=== PATIENT | female | born 1935 | race Caucasian/White ===

== ENCOUNTER 2017-02-02 18:42 | Inpatient (IN) | payer MEDICARE ==
[~2017-02-02] VITALS: Ht 147.3 cm; Wt 48.1 kg
[2017-02-02] MEDS ORDERED: ACET-2154 PO (19:06)
[2017-02-02] MEDS ORDERED: ASPI81TA31 PO (19:06)
[2017-02-02] MEDS ORDERED: HYDR-552 PO (19:06)
[2017-02-02] MEDS ORDERED: DOCU-141 PO (19:09)
[2017-02-02] MEDS ORDERED: CYCL10TA9 PO (19:09)
[2017-02-02] MEDS ORDERED: CLON0.1T PO (19:09)
[2017-02-02] MEDS ORDERED: LORA0.5T PO (19:10)
[2017-02-02] MEDS ORDERED: LISI-603 PO (19:10)
[2017-02-02] MEDS ORDERED: SENN-167 PO (19:10)
[2017-02-02] MEDS ORDERED: TEMA15CA5 PO (19:11)
[2017-02-02] MEDS ORDERED: MAG HYDROX/AL HYDROX/SIMETH 30 ML LIQUID UDC PO PRN (20:15)
[2017-02-02] MEDS ORDERED: MAGNESIUM HYDROXIDE 30 ML LIQUID UDC PO PRN (20:15)
[2017-02-02] MEDS ORDERED: LORAZEPAM 0.5 MG TABLET PO PRN (20:15)
[2017-02-02] MEDS: TEMAZEPAM 7.5 MG CAPSULE PO PRN (22:44)
[2017-02-02] MEDS ORDERED: DOCUSATE SODIUM 100 MG CAPSULE PO SCH (22:45)
[2017-02-03 01:22] VITALS: BP 132/97
[2017-02-03 07:30] VITALS: BP 135/68
[2017-02-03 07:31] LABS: BASOPHILS # (AUTO) 0.1 K/uL (0.0-8.0); BASOPHILS % (AUTO) 0.8 % (0.0-2.0); EOSINOPHILS # (AUTO) 0.4 K/uL (0.0-0.7); EOSINOPHILS % (AUTO) 4.8 % (0.0-7.0); HEMOGLOBIN 13.2 G/DL (12.0-16.0); LYMPHOCYTES # (AUTO) 2.4 K/UL (0.8-4.8); MEAN CORPUSCULAR HEMOGLOBIN 32.2 UUG (27.0-31.0); MEAN CORPUSCULAR HGB CONC 33 g/dL (32.0-37.0); MEAN CORPUSCULAR VOLUME 97.5 FL (81.0-99.0); MONOCYTES # (AUTO) 0.6 K/UL (0.1-1.30); MONOCYTES % (AUTO) 6.1 % (0.0-11.0); NEUTROPHILS # (AUTO) 5.8 K/UL (1.8-8.9); NEUTROPHILS % (AUTO) 62.3 % (38.5-71.5); PLATELET COUNT (AUTO) 410 K/UL (150-450); WHITE BLOOD COUNT (AUTO) 9.3 K/UL (4.0-11.2)
[2017-02-03 08:04] LABS: THYROID STIMULATING HORMONE 1.337 mIU/mL (0.358-3.740)
[2017-02-03 08:11] LABS: ALKALINE PHOSPHATASE 72 U/L (50-136); ASPARTATE AMINOTRANSFERASE 15 U/L (15-37); BILIRUBIN,TOTAL 0.6 mg/dL (0.2-1.0); CARBON DIOXIDE 30 mmol/L (21-32); CHLORIDE 101 mmol/L (98-107); CHOLESTEROL 263 mg/dL (<200); CREATININE 1.3 mg/dL (0.6-1.3); GLUCOSE 102 mg/dL (74-106); HDL CHOLESTEROL 94 mg/dL (40-60); MAGNESIUM 2.1 mg/dL (1.8-2.4); PHOSPHOROUS 3.9 mg/dL (2.5-4.9); POTASSIUM 3.8 mmol/L (3.5-5.1); TOTAL PROTEIN, SERUM 8.5 g/dL (6.4-8.2); TRIGLYCERIDES 122 MG/DL (30-150); UREA NITROGEN, BLOOD 14 mg/dL (7-18)
[2017-02-03] MEDS: LISINOPRIL 20 MG TABLET PO SCH (08:34)
[2017-02-03] MEDS: ASPIRIN 81 MG TAB.CHEW PO SCH (08:34)
[2017-02-03] MEDS: HYDROCODONE/APAP 5-325MG TABLET PO PRN ×2 (08:37→18:52)
[2017-02-03 08:59] LABS: ALANINE AMINOTRANSFERASE 15 U/L (14-59)
[2017-02-03] MEDS: Z GUARD REMEDY PASTE 57 GM TUBE TOP SCH ×2 (09:43→21:09)
[2017-02-03 15:07] VITALS: BP 137/77
[2017-02-03] MEDS: CYCLOBENZAPRINE HCL 10 MG TABLET PO PRN (15:24)
[2017-02-03] MEDS: DULOXETINE 30 MG CAPSULE.DR PO SCH (15:45)
[2017-02-03 20:20] VITALS: BP 142/62
[2017-02-03] MEDS: SENNOSIDES 1 TABLET PO SCH (21:08)
[2017-02-03] MEDS: TEMAZEPAM 7.5 MG CAPSULE PO PRN (21:08)
[2017-02-03] MEDS: DOCUSATE SODIUM 100 MG CAPSULE PO SCH (21:08)
[2017-02-03] MEDS: ATORVASTATIN 10 MG TABLET PO SCH (21:08)
[2017-02-04] MEDS: DULOXETINE 30 MG CAPSULE.DR PO SCH (09:41)
[2017-02-04] MEDS: ASPIRIN 81 MG TAB.CHEW PO SCH (09:41)
[2017-02-04] MEDS: LISINOPRIL 20 MG TABLET PO SCH (09:41)
[2017-02-04] MEDS: Z GUARD REMEDY PASTE 57 GM TUBE TOP SCH ×2 (09:42→21:14)
[2017-02-04] MEDS: ACETAMINOPHEN 325 MG TABLET PO PRN (09:44)
[2017-02-04] MEDS: DOCUSATE SODIUM 100 MG CAPSULE PO SCH ×2 (14:00→21:14)
[2017-02-04 15:00] VITALS: BP 126/60
[2017-02-04] MEDS: CYCLOBENZAPRINE HCL 10 MG TABLET PO PRN (17:15)
[2017-02-04] MEDS: HYDROCODONE/APAP 5-325MG TABLET PO PRN (17:19)
[2017-02-04 20:47] VITALS: BP 121/65
[2017-02-04] MEDS: SENNOSIDES 1 TABLET PO SCH (21:14)
[2017-02-04] MEDS: ATORVASTATIN 10 MG TABLET PO SCH (21:14)
[2017-02-05 07:30] VITALS: BP 124/70
[2017-02-05 07:44] LABS: BASOPHILS # (AUTO) 0.1 K/uL (0.0-8.0); BASOPHILS % (AUTO) 0.8 % (0.0-2.0); EOSINOPHILS # (AUTO) 0.3 K/uL (0.0-0.7); EOSINOPHILS % (AUTO) 3.5 % (0.0-7.0); HEMATOCRIT 33.3 % (37-47); HEMOGLOBIN 11.2 G/DL (12.0-16.0); LYMPHOCYTES # (AUTO) 1.7 K/UL (0.8-4.8); LYMPHOCYTES % (AUTO) 22.9 % (20.5-51.5); MEAN CORPUSCULAR HEMOGLOBIN 32.5 UUG (27.0-31.0); MEAN CORPUSCULAR HGB CONC 34 g/dL (32.0-37.0); MEAN CORPUSCULAR VOLUME 96.9 FL (81.0-99.0); MONOCYTES # (AUTO) 0.5 K/UL (0.1-1.30); MONOCYTES % (AUTO) 7.1 % (0.0-11.0); NEUTROPHILS # (AUTO) 4.7 K/UL (1.8-8.9); NEUTROPHILS % (AUTO) 65.7 % (38.5-71.5); PLATELET COUNT (AUTO) 323 K/UL (150-450); RED BLOOD CELL COUNT(AUTO) 3.44 MIL/UL (4.2-5.4); WHITE BLOOD COUNT (AUTO) 7.3 K/UL (4.0-11.2)
[2017-02-05 07:53] LABS: ALANINE AMINOTRANSFERASE 12 U/L (14-59); ALKALINE PHOSPHATASE 56 U/L (50-136); ASPARTATE AMINOTRANSFERASE 13 U/L (15-37); BILIRUBIN,TOTAL 0.6 mg/dL (0.2-1.0); CARBON DIOXIDE 30 mmol/L (21-32); CHLORIDE 103 mmol/L (98-107); GLUCOSE 87 mg/dL (74-106); MAGNESIUM 1.9 mg/dL (1.8-2.4); PHOSPHOROUS 3.2 mg/dL (2.5-4.9); POTASSIUM 4.7 mmol/L (3.5-5.1); UREA NITROGEN, BLOOD 17 mg/dL (7-18)
[2017-02-05] MEDS: ACETAMINOPHEN 325 MG TABLET PO PRN (09:10)
[2017-02-05] MEDS: Z GUARD REMEDY PASTE 57 GM TUBE TOP SCH ×2 (09:11→20:16)
[2017-02-05] MEDS: ASPIRIN 81 MG TAB.CHEW PO SCH (09:11)
[2017-02-05] MEDS: LISINOPRIL 20 MG TABLET PO SCH (09:11)
[2017-02-05] MEDS: DULOXETINE 30 MG CAPSULE.DR PO SCH (09:11)
[2017-02-05] MEDS: CYCLOBENZAPRINE HCL 10 MG TABLET PO PRN (11:54)
[2017-02-05 15:00] VITALS: BP 116/63
[2017-02-05] MEDS: HYDROCODONE/APAP 5-325MG TABLET PO PRN (18:55)
[2017-02-05] MEDS: ATORVASTATIN 10 MG TABLET PO SCH (20:15)
[2017-02-05] MEDS: DOCUSATE SODIUM 100 MG CAPSULE PO SCH (20:15)
[2017-02-05] MEDS: SENNOSIDES 1 TABLET PO SCH (20:15)
[2017-02-05 20:59] VITALS: BP 122/68
[2017-02-06] MEDS: TEMAZEPAM 7.5 MG CAPSULE PO PRN (00:56)
[2017-02-06] MEDS: HYDROCODONE/APAP 5-325MG TABLET PO PRN ×2 (06:24→21:39)
[2017-02-06 07:30] VITALS: BP 107/59
[2017-02-06 07:55] LABS: BASOPHILS # (AUTO) 0.1 K/uL (0.0-8.0); BASOPHILS % (AUTO) 0.9 % (0.0-2.0); EOSINOPHILS # (AUTO) 0.3 K/uL (0.0-0.7); EOSINOPHILS % (AUTO) 3.6 % (0.0-7.0); HEMATOCRIT 32.9 % (37-47); HEMOGLOBIN 11.1 G/DL (12.0-16.0); LYMPHOCYTES # (AUTO) 1.4 K/UL (0.8-4.8); LYMPHOCYTES % (AUTO) 18.4 % (20.5-51.5); MEAN CORPUSCULAR HEMOGLOBIN 32.6 UUG (27.0-31.0); MEAN CORPUSCULAR HGB CONC 34 g/dL (32.0-37.0); MEAN CORPUSCULAR VOLUME 96.4 FL (81.0-99.0); MONOCYTES # (AUTO) 0.6 K/UL (0.1-1.30); MONOCYTES % (AUTO) 7.5 % (0.0-11.0); NEUTROPHILS # (AUTO) 5.5 K/UL (1.8-8.9); NEUTROPHILS % (AUTO) 69.6 % (38.5-71.5); PLATELET COUNT (AUTO) 336 K/UL (150-450); RED BLOOD CELL COUNT(AUTO) 3.41 MIL/UL (4.2-5.4); WHITE BLOOD COUNT (AUTO) 7.9 K/UL (4.0-11.2)
[2017-02-06 08:33] LABS: IRON, SERUM 67 ug/dL (50-175)
[2017-02-06] MEDS ORDERED: DULOXETINE 30 MG CAPSULE.DR PO SCH (09:00)
[2017-02-06] MEDS: LISINOPRIL 20 MG TABLET PO SCH (09:00)
[2017-02-06] MEDS: DULOXETINE 20 MG CAPSULE.DR PO SCH (09:01)
[2017-02-06] MEDS: ASPIRIN 81 MG TAB.CHEW PO SCH (09:01)
[2017-02-06] MEDS: Z GUARD REMEDY PASTE 57 GM TUBE TOP SCH ×2 (09:02→20:53)
[2017-02-06] MEDS: CYCLOBENZAPRINE HCL 10 MG TABLET PO PRN (12:49)
[2017-02-06 14:09] LABS: *OCCULT BLOOD STOOL NEGATIVE (NEGATIVE)
[2017-02-06 16:41] VITALS: BP 147/82
[2017-02-06] MEDS: SENNOSIDES 1 TABLET PO SCH (20:21)
[2017-02-06] MEDS: DOCUSATE SODIUM 100 MG CAPSULE PO SCH (20:21)
[2017-02-06] MEDS: ATORVASTATIN 10 MG TABLET PO SCH (20:21)
[2017-02-06 21:02] VITALS: BP 138/76
[2017-02-07 07:30] VITALS: BP 131/75
[2017-02-07] MEDS: ASPIRIN 81 MG TAB.CHEW PO SCH (08:26)
[2017-02-07] MEDS: DULOXETINE 20 MG CAPSULE.DR PO SCH (08:26)
[2017-02-07] MEDS: Z GUARD REMEDY PASTE 57 GM TUBE TOP SCH ×2 (08:27→20:13)
[2017-02-07] MEDS: LISINOPRIL 20 MG TABLET PO SCH (08:27)
[2017-02-07] MEDS: HYDROCODONE/APAP 5-325MG TABLET PO PRN ×2 (10:06→20:18)
[2017-02-07 16:00] VITALS: BP 110/55
[2017-02-07] MEDS: CYCLOBENZAPRINE HCL 10 MG TABLET PO PRN (16:02)
[2017-02-07 20:00] VITALS: BP 119/71
[2017-02-07] MEDS: SENNOSIDES 1 TABLET PO SCH (20:13)
[2017-02-07] MEDS: DOCUSATE SODIUM 100 MG CAPSULE PO SCH (20:13)
[2017-02-07] MEDS: ATORVASTATIN 10 MG TABLET PO SCH (20:13)
[2017-02-08 07:56] VITALS: BP 114/62
[2017-02-08] MEDS: HYDROCODONE/APAP 5-325MG TABLET PO PRN ×2 (08:49→20:12)
[2017-02-08] MEDS: ASPIRIN 81 MG TAB.CHEW PO SCH (08:49)
[2017-02-08] MEDS: Z GUARD REMEDY PASTE 57 GM TUBE TOP SCH ×2 (08:50→20:37)
[2017-02-08] MEDS: DULOXETINE 20 MG CAPSULE.DR PO SCH (08:50)
[2017-02-08] MEDS: LISINOPRIL 20 MG TABLET PO SCH (08:50)
[2017-02-08] MEDS: CYCLOBENZAPRINE HCL 10 MG TABLET PO PRN (14:40)
[2017-02-08 16:57] VITALS: BP 116/67
[2017-02-08] MEDS: SENNOSIDES 1 TABLET PO SCH (20:11)
[2017-02-08] MEDS: DOCUSATE SODIUM 100 MG CAPSULE PO SCH (20:11)
[2017-02-08] MEDS: ATORVASTATIN 10 MG TABLET PO SCH (20:12)
[2017-02-08 21:29] VITALS: BP 116/69
[2017-02-09 07:30] VITALS: BP 127/72
[2017-02-09] MEDS: HYDROCODONE/APAP 5-325MG TABLET PO PRN ×2 (08:05→20:11)
[2017-02-09] MEDS: DULOXETINE 20 MG CAPSULE.DR PO SCH (08:05)
[2017-02-09] MEDS: ASPIRIN 81 MG TAB.CHEW PO SCH (08:05)
[2017-02-09] MEDS: LISINOPRIL 20 MG TABLET PO SCH (08:06)
[2017-02-09] MEDS: Z GUARD REMEDY PASTE 57 GM TUBE TOP SCH ×2 (08:07→21:05)
[2017-02-09 08:24] LABS: BASOPHILS # (AUTO) 0.1 K/uL (0.0-8.0); BASOPHILS % (AUTO) 0.9 % (0.0-2.0); EOSINOPHILS # (AUTO) 0.3 K/uL (0.0-0.7); EOSINOPHILS % (AUTO) 3.9 % (0.0-7.0); HEMATOCRIT 34.6 % (37-47); HEMOGLOBIN 11.7 G/DL (12.0-16.0); LYMPHOCYTES # (AUTO) 1.4 K/UL (0.8-4.8); MEAN CORPUSCULAR HEMOGLOBIN 32.6 UUG (27.0-31.0); MEAN CORPUSCULAR HGB CONC 34 g/dL (32.0-37.0); MEAN CORPUSCULAR VOLUME 96.7 FL (81.0-99.0); MONOCYTES # (AUTO) 0.5 K/UL (0.1-1.30); MONOCYTES % (AUTO) 7.5 % (0.0-11.0); NEUTROPHILS # (AUTO) 4.8 K/UL (1.8-8.9); NEUTROPHILS % (AUTO) 67.7 % (38.5-71.5); PLATELET COUNT (AUTO) 335 K/UL (150-450); RED BLOOD CELL COUNT(AUTO) 3.58 MIL/UL (4.2-5.4); WHITE BLOOD COUNT (AUTO) 7.1 K/UL (4.0-11.2)
[2017-02-09 08:45] LABS: ALANINE AMINOTRANSFERASE 13 U/L (14-59); ALKALINE PHOSPHATASE 55 U/L (50-136); ASPARTATE AMINOTRANSFERASE 12 U/L (15-37); BILIRUBIN,TOTAL 0.5 mg/dL (0.2-1.0); CARBON DIOXIDE 29 mmol/L (21-32); CHLORIDE 100 mmol/L (98-107); GLUCOSE 90 mg/dL (74-106); MAGNESIUM 1.9 mg/dL (1.8-2.4); PHOSPHOROUS 2.9 mg/dL (2.5-4.9); POTASSIUM 4.2 mmol/L (3.5-5.1); TOTAL PROTEIN, SERUM 7.2 g/dL (6.4-8.2); UREA NITROGEN, BLOOD 19 mg/dL (7-18)
[2017-02-09 15:35] VITALS: BP_SYST 116; BP_SYST 117; BP_DIAS 67; BP_DIAS 74
[2017-02-09] MEDS: CYCLOBENZAPRINE HCL 10 MG TABLET PO PRN (16:51)
[2017-02-09 20:00] VITALS: BP 135/64
[2017-02-09] MEDS: ATORVASTATIN 10 MG TABLET PO SCH (20:12)
[2017-02-09] MEDS: SENNOSIDES 1 TABLET PO SCH (20:14)
[2017-02-09] MEDS: DOCUSATE SODIUM 100 MG CAPSULE PO SCH (20:15)
[2017-02-10 07:30] VITALS: BP 118/62
[2017-02-10 09:22] VITALS: BP 127/80
[2017-02-10] MEDS: DULOXETINE 20 MG CAPSULE.DR PO SCH (09:22)
[2017-02-10] MEDS: LISINOPRIL 20 MG TABLET PO SCH (09:22)
[2017-02-10] MEDS: ASPIRIN 81 MG TAB.CHEW PO SCH (09:23)
[2017-02-10] MEDS: Z GUARD REMEDY PASTE 57 GM TUBE TOP SCH (09:23)
[2017-02-10] MEDS: HYDROCODONE/APAP 5-325MG TABLET PO PRN (09:33)
== END 2017-02-10 12:30 | disposition home or self-care (01) | DRG 885 ==
LOC: ER 18:43 → GPS 19:48
PROVIDERS: ADMIT Internal Medicine; ATTEND Psychiatry & Neurology Psychiatry
DX: F33.2 Major depressive disorder, recurrent severe without psychotic features (principal); F23 Brief psychotic disorder; E44.1 Mild protein-calorie malnutrition; R45.851 Suicidal ideations; D64.9 Anemia, unspecified; E83.52 Hypercalcemia; E78.5 Hyperlipidemia, unspecified; I10 Essential (primary) hypertension; G89.29 Other chronic pain; E88.09 Other disorders of plasma-protein metabolism, not elsewhere classified; Z68.22 Body mass index [BMI] 22.0-22.9, adult
CPT/HCPCS: 36415; 71010; 82306; 83550; 83735; 84100; 84443; 85025; 93005; 97116; 97161; 97530; A4663